=== PATIENT | male | born 1965 | race Caucasian/White ===

== ENCOUNTER 2019-07-14 11:50 | Emergency (ER) | payer MEDICARE, MEDICAID ==
[~2019-07-14] VITALS: Ht 180.3 cm; Wt 105.5 kg
[~2019-07-14 11:50] MED LIST: CYAN500T63 PO; GABA-534 PO; QUET25TA34 PO; QUET300T19 PO; TRAM50TA2 PO; VAL5T PO; VITC500T PO
[2019-07-14 13:07] LABS: BASOPHILS # (AUTO) 0.1 X10'3 (0-0.2); BASOPHILS % (AUTO) 0.8 % (0-1); EOSINOPHILS # (AUTO) 0.4 X10'3 (0-0.9); HEMATOCRIT 36.6 % (42.0-52.0); HEMOGLOBIN 12.6 g/dl (14.0-17.9); LYMPHOCYTES # (AUTO) 2.6 X10'3 (1.1-4.8); LYMPHOCYTES % (AUTO) 31.8 % (21-51); MEAN CORPUSCULAR HEMOGLOBIN 32.8 PG (27.0-31.0); MEAN CORPUSCULAR HGB CONC 34.3 g/dL (33.0-36.5); MEAN CORPUSCULAR VOLUME 95.6 FL (78-98); MEAN PLATELET VOLUME 6.4 FL (7.4-10.4); MONOCYTES # (AUTO) 0.7 X10'3 (0-0.9); MONOCYTES % (AUTO) 9.1 % (2-12); NEUTROPHILS # (AUTO) 4.4 X10'3 (1.8-7.7); NEUTROPHILS % (AUTO) 53.3 % (42-75); PLATELET COUNT 313 X10'3 (140-440); RED BLOOD COUNT 3.83 X10'6 (4.70-6.10); RED CELL DISTRIBUTION WIDTH 14.5 % (11.5-14.5); WHITE BLOOD COUNT 8.2 X10'3 (4.5-11.0)
[2019-07-14] MEDS ORDERED: diphenhydrAMINE 25mg capsule PO ONE (13:10)
[2019-07-14] MEDS ORDERED: LORazepam 1 MG tablet PO ONE (13:10)
--- NOTE | 2019-07-14 13:30 | NUR ---
Pt arrived on ER overflow with driver trainee.
[2019-07-14 13:51] LABS: ALANINE AMINOTRANSFERASE 38 U/L (12-78); ALBUMIN 3.7 G/DL (3.4-5.0); ALKALINE PHOSPHATASE 64 IU/L (46-116); ANION GAP 12 (8-16); ASPARTATE AMINO TRANSFERASE 31 U/L (10-37); BILIRUBIN,TOTAL 0.5 MG/DL (0.1-1.0); BLOOD UREA NITROGEN 11 MG/DL (7-18); BUN/CREATININE RATIO 14.9 (5.4-32.0); CALCIUM 9.1 MG/DL (8.5-10.1); CHLORIDE 107 MMOL/L (99-107); CREATININE 0.74 MG/DL (0.60-1.10); ETHANOL < 0.010 GM/DL (0.0-0.010); GLUCOSE 85 MG/DL (70-104); POTASSIUM 3.9 MMOL/L (3.5-5.1); SODIUM 144 MMOL/L (135-145); TOTAL CARBON DIOXIDE 25.5 MMOL/L (24-32); TOTAL PROTEIN 7.3 G/DL (6.4-8.2); eGFR > 90 ML/MIN
[2019-07-14 13:53] LABS: URINE AMPHETAMINE SCREEN POSITIVE (Neg); URINE BARBITUATE SCREEN NEGATIVE (Neg); URINE BENZODIAZEPINES SCREEN POSITIVE (Neg); URINE CANNABINOID SCREEN NEGATIVE (Neg); URINE COCAINE SCREEN NEGATIVE (Neg); URINE METHADONE SCREEN NEGATIVE (Neg); URINE OPIATE SCREEN NEGATIVE (Neg); URINE PHENCYCLIDINE SCREEN NEGATIVE (Neg)
--- NOTE | 2019-07-14 14:30 | NUR ---
Pt brought directly back to ER overflow. Pt was brought to [facility] via medical transport after stating SI while at [facility]. 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 Pt is cooperative and responds to redirection. Met with Pt's son and Pt to complete admission. Pt c/o being takemn off his MH meds and started on other meds that are causing side effects.
[2019-07-14] MEDS ORDERED: QUET-1 PO (14:35)
[2019-07-14] MEDS ORDERED: olanzapine 10mg tablet PO ONE (14:43)
[2019-07-14] MEDS ORDERED: DIAZ10TA4 PO (14:44)
[2019-07-14] MEDS ORDERED: TIZA2TAB5 PO (14:50)
[2019-07-14] MEDS ORDERED: CLIN300C70 PO (14:50)
[2019-07-14] MEDS ORDERED: ONDA4TAB6 PO (14:50)
[2019-07-14] MEDS ORDERED: ESCI20TA PO (14:53)
[2019-07-14] MEDS ORDERED: CLON0.122 PO (14:56)
--- NOTE | 2019-07-14 16:52 | NUR ---
FAXED PACKET [facility]
--- NOTE | 2019-07-14 17:51 | NUR ---
TUAN DURAND-SON [phone] KIMMIE ULLOA-EX [phone]
--- NOTE | 2019-07-14 18:35 | NUR ---
Nursing Note: Pt laying in bed, eyes closed, appears asleep, RR even and unlabored, no S&S of distress, will continue to monitor.
--- NOTE | 2019-07-14 19:50 | NUR ---
Nursing Note: Pt woke up and wanted to use restroom. Pt sedated and unable to stand without risk of falling. Pt's speech garbled and he could not sit up in the bed without falling over backwards. Urinal provided which pt attempted to use and got urine all over the floor. When pt laid back down he immediately returned to sleep. RR even and unlabored, no S&S of distress.
[2019-07-14] MEDS: clonazePAM 0.5mg tablet PO SCH (20:00)
[2019-07-14] MEDS ORDERED: ondansetron 4mg rapidly disintigrating tab PO PRN (20:05)
[2019-07-14] MEDS: clindamycin 150mg capsule PO SCH ×2 (20:56→21:00)
[2019-07-14] MEDS ORDERED: quetiapine 100mg tablet PO SCH (21:00)
--- NOTE | 2019-07-14 21:01 | NUR ---
Nursing Note: Pt sleeping, occasional mumbling in his sleep, RR even and unlabored, no S&S of distress. Pt's evening medications held due to the pt's level of sedation and choking risk. Will continue to monitor. Addendum: 07/14/19 at 2111 by PBROWN Amend: Notified Dr. Marquez that pt's medications were held due to level of sedation and choking risk.
--- NOTE | 2019-07-14 21:07 | NUR ---
Nursing Note: Pt awoke briefly and asked for a blanket. Offered pt Cleocin medication and pt refused medication. Pt now laying back down. Will continue to monitor.
--- NOTE | 2019-07-14 22:10 | NUR ---
covering primary RN for break. pt is currently sleeping. regular RR, equal rise and fall of chest. pt snoring. no distress noted. Will continue to monitor.
--- NOTE | 2019-07-14 23:00 | NUR ---
Nursing Note: Pt currently supine in bed, snoring occasionally, RR even, no S&S of distress, will continue to monitor.
--- NOTE | 2019-07-14 23:09 | NUR ---
Nursing Note: Pt's son Mango Hernandez and his ex- Myrna Morrissey called requesting information about whether the pt was positive for illicit drugs. The son is the one that brought the pt in for medical treatment so he knows the pt is in the ED. Explained to them that HIPPA prevents me from disclosing any information regarding the pt. Encouraged them to talk to the pt to ask these questions. Will continue to monitor.
--- NOTE | 2019-07-14 23:37 | NUR ---
Nursing Note: Pt awakened and sat up. He has poor balance and his upper body sways as he attempts to sit upright. He ate a sandwich. He is now laying on his R side with his eyes closed, no S&S of distress, RR even and unlabored, will continue to monitor.
--- NOTE | 2019-07-15 01:35 | NUR ---
Nursing Note: Pt laying on his R side, eyes closed, appears asleep, RR even and unlabored, no S&S of distress.
--- NOTE | 2019-07-15 03:19 | NUR ---
Nursing Note: Pt laying on his R side, snoring, RR even and unlabored, no S&S of distress, will continue to monitor.
--- NOTE | 2019-07-15 04:49 | NUR ---
Nursing Note: Pt laying on R side, sleeping, RR even and unlabored, no S&S of distress, will continue to monitor.
[2019-07-15 05:38] VITALS: BP 125/84
--- NOTE | 2019-07-15 05:50 | NUR ---
Nursing Note: Pt up to restroom. Pt required standby assist, his gait is very unsteady and wobbly. Will continue to monitor.
--- NOTE | 2019-07-15 06:25 | NUR ---
Patient sleeping supine. No distress observed. Continue to monitor.
[2019-07-15] MEDS: clindamycin 150mg capsule PO SCH ×2 (08:00→13:00)
[2019-07-15] MEDS ORDERED: ESCITALOPRAM OXALATE 5 MG TABLET PO SCH (08:00)
[2019-07-15] MEDS: clonazePAM 0.5mg tablet PO SCH (08:00)
--- NOTE | 2019-07-15 08:16 | NUR ---
Patient sleeping supine. No distress observed. Continue to monitor.
--- NOTE | 2019-07-15 10:45 | NUR ---
Patient awoke when RN advised patient that his breakfast was here. Patient immediately got up and ate. No distress observed. Continue to monitor.
[2019-07-15] MEDS ORDERED: acetaminophen 325mg tablet PO PRN (12:05)
[2019-07-15] MEDS ORDERED: loperamide 2mg capsule PO PRN (12:10)
[2019-07-15] MEDS: penicillin V potassium 500mg tablet PO SCH (13:00)
--- NOTE | 2019-07-15 13:10 | NUR ---
Patient being evaluated by [facility]. Continue to monitor.
--- NOTE | 2019-07-15 13:26 | NUR ---
TRANSFER PHONE CALL TO PT FROM HILARIO CERDA. PT IS OK WITH TAKING THE CALL.
--- NOTE | 2019-07-15 13:33 | NUR ---
PT BECOMES AGITATED DURING HIS CALL WITH HIS XWIFE. PT IS CAUTIONED TO QUIET DOWN AND THEN BRINGS THE CALL TO AN END.
[2019-07-15] MEDS ORDERED: PENI-88 PO (14:06)
--- NOTE | 2019-07-15 14:32 | NUR ---
RN advised patient he is going home and patient does not want to go and fell back asleep. RN called his son to and left a voice mail to advise him to bring patient his clothes and pick him up. Continue to monitor sleeping patient.
[2019-07-15] MEDS ORDERED: ibuprofen 200mg tablet PO ONE (14:50)
--- NOTE | 2019-07-15 15:00 | NUR ---
RN gave patient 600 mg ibuprofen just before he left. Patient complaining about pain to his teeth. Patient also received a RX of PCN for his mouth infection. First dose was given here.
[2019-07-15] MEDS ORDERED: lactobacillus rhamnosus 10,000 MMU CELLS/CAPSULE PO SCH (20:00)
== END 2019-07-15 15:00 | disposition home or self-care (01) ==
LOC: ER 11:50
DX: F25.9 Schizoaffective disorder, unspecified (principal); F19.10 Other psychoactive substance abuse, uncomplicated; F41.9 Anxiety disorder, unspecified; F32.9 Major depressive disorder, single episode, unspecified; F15.90 Other stimulant use, unspecified, uncomplicated; Z79.899 Other long term (current) drug therapy
CPT/HCPCS: 36415; 80053; 80305; 80320; 85025; 99284; Q0163